=== PATIENT | female | born 1995 | race Two or more races ===

== ENCOUNTER 2018-08-25 22:59 | Emergency (ER) | payer SELFPAY ==
--- NOTE | 2018-08-25 23:48 | EDM.PDOC ---
ED HPI GENERAL MEDICAL PROBLEM - General Chief Complaint: Respiratory Problem Stated Complaint: COUGH Time Seen by Provider: 08/25/18 23:48 - History of Present Illness INITIAL COMMENTS - FREE TEXT/NARRATIVE: 23-year-old female presents emergency room with cough. this cough started 2 weeks ago. At the onset it was associated with a lot of upper airway drainage and she was coughing up off color sputum. Now the cough is minimally productive mostly dry. At times she brings up a scant amount of sputum and she is noticed blood streaking on it at one time. She denies any recent fevers or chills but early and on did have some she has no nausea or vomiting no other complaints at this time. Patient denies any possibility of being . The patient does have a history of asthma but has not used inhalers in quite some time. - Related Data Allergies Allergy/AdvReac Type Severity Reaction Status Date / Time No Known Allergies Allergy Verified 08/25/18 23:08 Home Meds: Home Meds Albuterol [Ventolin HFA] 8 gm IH Q4H PRN #1 inhaler 08/26/18 [Rx] Past Medical History Respiratory History: Reports: Asthma Social & Family History - Tobacco Use Smoking Status *Q: Former Smoker Used Tobacco, but Quit: Yes Month/Year Tobacco Last Used: 08/05 - Recreational Drug Use Recreational Drug Use: No ED ROS GENERAL - Review of Systems Review Of Systems: See Below Constitutional: Reports: No Symptoms HEENT: Reports: No Symptoms Respiratory: Reports: Cough, Sputum (Minimal), Hemoptysis (Scant) Cardiovascular: Reports: No Symptoms GI/Abdominal: Reports: No Symptoms : Reports: No Symptoms Neurological: Reports: No Symptoms ED EXAM, GENERAL - Physical Exam Exam: See Below Exam Limited By: No Limitations General Appearance: Alert, No Apparent Distress Eye Exam: Bilateral Eye: Normal Inspection Ears: Normal External Exam, Normal Canal, Hearing Grossly Normal, Normal TMs Nose: Normal Inspection, Normal Mucosa, No Blood Throat/Mouth: Normal Inspection, Normal Lips, Normal Teeth, Normal Gums, Normal Oropharynx, Normal Voice, No Airway Compromise Head: Atraumatic, Normocephalic Neck: Normal Inspection, Supple, Non-Tender, Full Range of Motion. No: Lymphadenopathy (L), Lymphadenopathy (R) Respiratory/Chest: No Respiratory Distress, Lungs Clear, Normal Breath Sounds. No: Decreased Breath Sounds Cardiovascular: Regular Rate, Rhythm, No Edema, No Murmur Neurological: Alert, Oriented, Normal Cognition Course - Vital Signs Last Recorded V/S: Last Vital Signs Temp 36.2 C 08/25/18 23:06 Pulse 89 08/25/18 23:06 Resp 18 08/25/18 23:06 BP 158/114 H 08/25/18 23:06 Pulse Ox 98 08/25/18 23:06 - Orders/Labs/Meds Orders: Active Orders 24 hr Category Date Time Status RT Post Treatment Assessment [RC] Click to Edit Care 08/26/18 00:36 Active RT Pre-Treatment Assessment [RC] Click to Edit Care 08/26/18 00:36 Inactive RT Pre-Treatment Assessment [RC] Click to Edit Care 08/26/18 00:52 Active Chest 2V [CR] Stat Exams 08/26/18 00:32 Taken Meds: Medications Discontinued Medications Generic Name Dose Route Start Last Admin Trade Name Freq PRN Reason Stop Dose Admin Albuterol 8.5 gm 08/26/18 00:35 08/26/18 00:59 Proventil Hfa INH 08/26/18 00:36 Not Given ONETIME ONE Albuterol 6.7 gm 08/26/18 00:52 08/26/18 00:56 Proventil Hfa INH 08/26/18 00:53 2 puff ONETIME ONE Administration - Re-Assessments/Exams Free Text/Narrative Re-Assessment/Exam: 08/26/18 01:22 She was given an albuterol MDI she used it and she feels better. Chest x-ray is negative for acute cardiopulmonary changes. Departure - Departure Time of Disposition: 01:23 Disposition: Home, Self-Care 01 Clinical Impression: Bronchitis, History of asthma - Discharge Information Prescriptions: Albuterol [Ventolin HFA] 8 gm IH Q4H PRN #1 inhaler PRN Reason: Cough Referrals: PCP,Not In Area [Primary Care Provider] - Forms: ED Department Discharge Additional Instructions: Return to the emergency room with any questions problems worsening symptoms. Use the inhaler 2 puffs every 4 hours while awake until the cough is gone. Follow-up at the Hospital clinic and establish with a new provider. [phone] - My Orders Last 24 Hours: My Active Orders 08/26/18 00:32 Chest 2V [CR] Stat 08/26/18 00:36 RT Post Treatment Assessment [RC] Click to Edit RT Pre-Treatment Assessment [RC] Click to Edit 08/26/18 00:52 RT Pre-Treatment Assessment [RC] Click to Edit - Assessment/Plan Last 24 Hours: My Active Orders 08/26/18 00:32 Chest 2V [CR] Stat 08/26/18 00:36 RT Post Treatment Assessment [RC] Click to Edit RT Pre-Treatment Assessment [RC] Click to Edit 08/26/18 00:52 RT Pre-Treatment Assessment [RC] Click to Edit
[2018-08-26] MEDS ORDERED: Albuterol 6.7 GM Inhaler INH ONE ×2 (00:35→00:52)
--- NOTE | 2018-08-26 06:46 | CR ---
Chest: Two views of the chest were obtained. Comparison: No prior chest x-ray. Heart size and mediastinum are normal. Lungs are clear. Bony structures are unremarkable. Impression: 1. Nothing acute is seen on two-view chest x-ray. Diagnostic code #1
== END 2018-08-26 01:31 | disposition home or self-care (01) ==
LOC: JD.ED 22:59
DX: J45.909 Unspecified asthma, uncomplicated (principal); Z87.891 Personal history of nicotine dependence
CPT/HCPCS: 71046; 94640; 99284; A9270; 99283

== ENCOUNTER 2018-10-13 15:58 | Emergency (ER) | payer SELFPAY ==
--- NOTE | 2018-10-13 17:03 | EDM.PDOC ---
ED HPI GENERAL MEDICAL PROBLEM - General Chief Complaint: Chest Pain Stated Complaint: CHEST PAIN Time Seen by Provider: 10/13/18 16:16 Source of Information: Reports: Patient, RN Notes Reviewed - History of Present Illness INITIAL COMMENTS - FREE TEXT/NARRATIVE: 23-year-old female had onset of left-sided chest pain yesterday which became more bothersome last evening left upper chest. This continued today and has been more severe today than what she experienced last evening. Describes this as a pressure and tightness feeling with also worsening of the discomfort with deep breathing and also with certain types of motion of her left arm. She has no history of hypertension diabetes or coronary artery disease. She has not been coughing any more than usual. She does not feel short of breath. There have been no recent fever or chills. No recent injury that she is aware. Left Chest Pain Score (Numeric/FACES): 7 - Related Data Allergies Allergy/AdvReac Type Severity Reaction Status Date / Time No Known Allergies Allergy Verified 08/25/18 23:08 Home Meds: Home Meds Naproxen [Naprosyn] 500 mg PO Q12HR #14 tab 10/13/18 [Rx] Past Medical History Respiratory History: Reports: Asthma, Bronchitis, Recurrent Social & Family History - Tobacco Use Smoking Status *Q: Former Smoker Used Tobacco, but Quit: Yes Month/Year Tobacco Last Used: 3 months - Caffeine Use Caffeine Use: Reports: Soda - Recreational Drug Use Recreational Drug Use: No ED ROS GENERAL - Review of Systems Review Of Systems: See Below Constitutional: Denies: Fever, Chills, Diaphoresis HEENT: Denies: Throat Pain Respiratory: Reports: Pleuritic Chest Pain. Denies: Shortness of Breath, Wheezing Cardiovascular: Reports: Chest Pain GI/Abdominal: Denies: Abdominal Pain, Nausea, Vomiting Musculoskeletal: Denies: Neck Pain, Shoulder Pain, Arm Pain, Back Pain Skin: Reports: No Symptoms Neurological: Reports: No Symptoms ED EXAM, GENERAL - Physical Exam Exam: See Below General Appearance: Alert, Anxious, Mild Distress Eye Exam: Bilateral Eye: PERRL Throat/Mouth: Normal Inspection Head: Atraumatic Neck: Supple Respiratory/Chest: No Respiratory Distress, Lungs Clear, Normal Breath Sounds, Other (Moderate to severe tenderness left upper chest wall lateral chest wall nontender, no visible bruising or swelling) Cardiovascular: Regular Rate, Rhythm GI/Abdominal: Soft, Non-Tender Extremities: Normal Inspection. No: Pedal Edema, Leg Pain Neurological: Alert, Oriented, No Motor/Sensory Deficits Skin Exam: Warm, Dry, Normal Color EKG INTERPRETATION EKG Date: 10/13/18 Rhythm: NSR [place]: Normal P-Wave: Present QRS: Normal ST-T: Normal Course - Vital Signs Last Recorded V/S: Last Vital Signs Temp 97.9 F 10/13/18 16:10 Pulse 60 10/13/18 16:10 Resp 20 10/13/18 16:10 BP 119/69 10/13/18 16:10 Pulse Ox 100 10/13/18 16:10 - Orders/Labs/Meds Orders: Active Orders 24 hr Category Date Time Status EKG 12 Lead [EKG Documentation Completion] [RC] STAT Care 10/13/18 16:59 Active Chest 1V Frontal [CR] Stat Exams 10/13/18 16:59 Taken Meds: Medications Discontinued Medications Generic Name Dose Route Start Last Admin Trade Name Steffen PRN Reason Stop Dose Admin Naproxen 500 mg 10/13/18 18:10 10/13/18 18:21 Naprosyn PO 10/13/18 18:11 500 mg ONETIME ONE Administration - Re-Assessments/Exams Free Text/Narrative Re-Assessment/Exam: 10/13/18 20:18 Chest x-ray also was normal, EKG normal she's been in sinus rhythm no ectopy, she is markedly tenderness of the left anterior chest wall, discharge instructions as documented. Departure - Departure Time of Disposition: 18:20 Disposition: Home, Self-Care 01 Condition: Fair Clinical Impression: Chest wall pain Prescriptions: Naproxen [Naprosyn] 500 mg PO Q12HR #14 tab Instructions: Chest Wall Pain, [id number] Referrals: PCP,None [Primary Care Provider] - Forms: ED Department Discharge Additional Instructions: Naprosyn 500 mg twice daily for pain and inflammation, this will take 2-3 days to really help relieve the inflammation to the point of where the pain should start going away, he may also take Tylenol 2 500 mg tabs up to 3 times daily for further pain relief. Follow-up clinic if not much better within 3-4 days as expected, return to ED as needed if symptoms worsening in any way. - My Orders Last 24 Hours: My Active Orders 10/13/18 16:59 EKG 12 Lead [EKG Documentation Completion] [RC] STAT Chest 1V Frontal [CR] Stat - Assessment/Plan Last 24 Hours: My Active Orders 10/13/18 16:59 EKG 12 Lead [EKG Documentation Completion] [RC] STAT Chest 1V Frontal [CR] Stat
[2018-10-13] MEDS ORDERED: Naproxen 500 MG Tab PO ONE (18:10)
--- NOTE | 2018-10-14 07:33 | CR ---
Chest: Two views of the chest were obtained. Comparison: Prior chest x-ray of 08/26/18. Heart size and mediastinum are within normal limits for portable technique. Minimal scoliosis is seen. Bony structures are otherwise unremarkable. Lungs are clear with no acute parenchymal change. No pneumothorax is seen. Impression: 1. Incidental scoliosis. Nothing acute is appreciated on portable chest x-ray. Diagnostic code #2
== END 2018-10-13 18:30 | disposition home or self-care (01) ==
LOC: JD.ED 15:58
DX: R07.89 Other chest pain (principal); Z87.891 Personal history of nicotine dependence
CPT/HCPCS: 71045; 93005; 99284; A9270; 93010